=== PATIENT | male | born 1970 | race Caucasian/White ===

== ENCOUNTER 2021-03-27 08:43 | Outpatient (CLI) | payer BC, SELFPAY ==
[2021-03-27 09:03] LABS: Basophils Percent Auto 0.2 % (0.2-1.2); Eosinophils Absolute Auto 0.2 K/mm3 (0-0.3); Eosinophils Percent Auto 3.6 % (0-4.4); Hematocrit 46.5 % (42.0-52.0); Hemoglobin 15.7 g/dL (14.0-18.0); Immature Granulocyte Absolute 0.02 K/mm3 (0.00-0.031); Immature Granulocyte Percent A 0.5 % (0-0.5); Lymphocytes Absolute Auto 1.21 K/mm3 (0.9-3.2); Lymphocytes Percent Auto 27.5 % (18.3-44.2); Mean Corpuscular HGB Conc 33.8 g/dl (32-36); Mean Corpuscular Hemoglobin 29.9 pg (26-34); Mean Corpuscular Volume 88.6 fl (80-100); Mean Platelet Volume 8.8 fl (7.4-10.4); Monocytes Absolute Auto 0.4 K/mm3 (0.1-0.6); Neutrophils Absolute Auto 2.6 K/mm3 (1.3-6.7); Neutrophils Percent Auto 58.2 % (45.5-73.1); Platelet Count Result 247 k/mm3 (150-375); Red Blood Count 5.25 M/mm3 (4.6-6.20); Red Cell Distribution Width 13.2 % (11.5-14.5); White Blood Count 4.4 K/mm3 (4.5-10.0)
[2021-03-27 09:18] LABS: Alanine Aminotransferase 33 U/L (4-50); Albumin Level 4.8 g/dL (3.5-5.1); Alkaline Phosphatase 83 U/L (38-126); Anion Gap 12 mmol/L (8-16); Aspartate Amino Transferase 44 U/L (17-59); Bilirubin,Total 0.9 mg/dL (0.2-1.3); Blood Urea Nitrogen 13 mg/dL (9-20); Calcium 9.4 mg/dL (8.4-10.2); Carbon Dioxide 26 mmol/L (22-30); Chloride 100 mmol/L (98-107); Estimated Glomerular Filt Rate > 60; Glucose 110 mg/dL (65-110); Potassium 3.9 mmol/L (3.4-5.0); Sodium 138 mmol/L (137-145)
[2021-03-27 10:00] LABS: Hemoglobin A1C 5.4 % (<5.7)
[2021-03-27 10:24] LABS: Folic Acid 9.5 ng/mL (2.76->20)
== END 2021-03-27 08:44 | disposition home or self-care (01) ==
PROVIDERS: PCP Family Medicine; Visit Provider Family Medicine
DX: R63.4 Abnormal weight loss (principal); R53.83 Other fatigue; R73.01 Impaired fasting glucose
CPT/HCPCS: 36415; 80053; 82607; 82746; 83036; 84443; 85025

== ENCOUNTER 2021-04-11 14:01 | Outpatient (CLI) | payer BC, SELFPAY ==
--- NOTE | ~2021-04-11 | CT_ITS ---
EXAMINATION: CT brain wo con DATE: 04/11/2021 14:29 INDICATION: Transient cerebral ischemic attack. Slurred speech. Dizziness. TECHNIQUE: Computed tomography (CT) of the head was performed without intravenous contrast. The mA wa s adjusted according to patient size. Iterative reconstruction technique was employed. The dose-lengt h product was 605.33 mGy-cm. COMPARISON: None FINDINGS: There is no intracranial hemorrhage, acute infarction, or abnormal intracranial mass lesion . The ventricles are normal in size. There is mucosal thickening in the paranasal sinuses. The mastoi d air cells are normal. The orbits are normal. IMPRESSION: 1. Normal brain. Reviewed, dictated and finalized at location A. IMPRESSION: 1. Normal brain.
--- NOTE | ~2021-04-11 | US_ITS ---
EXAMINATION: US carotid duplex BI DATE: 04/11/2021 14:44 INDICATION: Transient cerebral ischemic attack TECHNIQUE: Grayscale, color Doppler, and pulsed Doppler images of the cervical carotid arteries were obtained. The degree of vessel stenosis is placed in one of the following categories: normal, <50%, 5 0-69%, >=70% but less than near-occlusion, near-occlusion, or total occlusion. Note that percent sten osis relative to normal distal artery lumen diameter is indirectly measured from velocity measurement s as described by Dong, et al. Radiology 2003; 229:340-346. Notes: Normal: Peak systolic velocity <125 centimeters/sec and no plaque <50%. Peak systolic velocity <125 ( EDV <40; ICA/CCA PSV ratio <2.0; used these factors only a tandem lesions or low cardiac output or co ntralateral disease) 50-69 %: PSV 125-230 (EDV 40-100; ratio 2-4) >= 70% but less than near occlusion: PSV greater than 230 (EDV > 100; ratio> 4.0) Near Occlusion: PSV that is variable; markedly narrowed lumen Occlusion: Absent flow on color/spectral Doppler and no lumen on krause scale. COMPARISON: None. FINDINGS: RIGHT: The right common carotid artery (CCA) peak systolic velocity (PSV) is 97 cm/s. The right internal car otid artery (ICA) PSV is 78 cm/s. The right ICA end-diastolic velocity (EDV) is 39 cm/s. The right IC A/CCA PSV ratio is 0.8. The external carotid artery (ECA) PSV is 95 cm/s. There is antegrade flow in the right vertebral artery. LEFT: The left CCA PSV is 86 cm/s. The left ICA PSV is 69 cm/s. The left ICA EDV is 30 cm/s. The left ICA/C CA PSV ratio is 0.8. The ECA PSV is 92 cm/s. There is antegrade flow in the left vertebral artery. IMPRESSION: 1. Less than 50% stenosis in the right internal carotid artery by sonographic criteria. 2. Less than 50% stenosis in the left internal carotid artery by sonographic criteria. Reviewed, dictated and finalized at location B. IMPRESSION: 1. Less than 50% stenosis in the right internal carotid artery by sonographic c yevgeniy. 2. Less than 50% stenosis in the left internal carotid artery by sonographic cr keith.
== END 2021-04-11 14:02 | disposition home or self-care (01) ==
PROVIDERS: PCP Family Medicine; Visit Provider Family Medicine
DX: G45.9 Transient cerebral ischemic attack, unspecified (principal); I65.23 Occlusion and stenosis of bilateral carotid arteries
CPT/HCPCS: 70450; 93880

== ENCOUNTER 2021-12-28 06:36 | Outpatient (CLI) | payer OTHER, SELFPAY ==
--- NOTE | 2021-12-28 09:42 | WPDNEUROLOGY ---
Neurology EEG Report General Information Date of Study: 12/28/21 TEST eeg DIAGNOSIS Focal seizures CONDITION OF RECORDING awake drowsy and sleep EEG NUMBER [id number] CLINICAL HISTORY patient reports he has had 4 to 5 episodes in the last 10 months of slurred speech lasting for about 10 minutes at 1 time EEG DESCRIPTION basic resting occipital frequency consists of poorly organized low voltage 9 to 11 hertz per 2nd alpha posteriorly admixed with low-voltage 15 to 18 hertz per 2nd beta. Low-voltage beta activity seen diffusely during drowsiness. Bilateral symmetrical sleep activity seen during sleep photic stimulation produced normal drive. Hyperventilation not done. Intermittent EKG artifacts are seen. Non paroxysmal. Nonfocal. Nonlateralizing. IMPRESSION No significant abnormalities noted
== END 2021-12-28 06:37 | disposition home or self-care (01) ==
LOC: ANHNEURO 06:38
PROVIDERS: PCP Family Medicine; Visit Provider Psychiatry & Neurology Neurology
DX: G40.109 Localization-related (focal) (partial) symptomatic epilepsy and epileptic syndromes with simple partial seizures, not intractable, without status epilepticus (principal)
CPT/HCPCS: 95816

== ENCOUNTER 2024-02-27 00:29 | Day surgery (SDC) | payer OTHER, SELFPAY ==
[2024-02-04 11:02] VITALS: BMI 25.1
[2024-02-27 10:12] VITALS: BP 139/97; PULSE 80; RESP 18; TEMP 36.5; O2SAT 97
[2024-02-27] MEDS: LACTATED RINGERS 1,000 ML 150 ML IV CONT (10:16)
--- NOTE | 2024-02-27 10:38 | WPDANESEPPF ---
Anes - Initial Pre Proc Eval Procedure: Operation Date: 02/27/24 11:30 Proposed Procedures p Screening Colonoscopy - Rojelio Tong MD Date/Time: 02/27/24 10:38 Surgeon: Rojelio Tong MD Pre Op Diagnosis: neoplasm screening, screening for malignant neopla Patient Data Age: 53 Gender: M Height: 1.85 m Weight: 79.4 kg Last Vital Signs Temp 97.7 F 02/27/24 10:12 Pulse 80 02/27/24 10:12 Resp 18 02/27/24 10:12 BP 139/97 H 02/27/24 10:12 Pulse Ox 97 02/27/24 10:12 O2 Del Method Room Air 02/27/24 10:12 Allergies Allergy/AdvReac Type Severity Reaction Status Date / Time Sulfa (Sulfonamide Allergy Intermediate Rash Verified 02/27/24 10:10 Antibiotics) sulfamethoxazole Allergy Intermediate Rash Verified 02/27/24 10:10 [From Bactrim] trimethoprim [From Bactrim] Allergy Intermediate Rash Verified 02/27/24 10:10 Home Medications Medication Instructions Recorded Confirmed Type indomethacin 50 mg capsule 50 mg PO TID PRN gout #30 caps 11/12/23 02/27/24 Rx allopurinol 100 mg tablet 100 mg PO DAILY #30 tabs 12/10/23 02/27/24 Rx Patient hx anesthesia problems: none Family hx anesthesia problems: none Results Review: All pre-operative results and documents have been reviewed as part of the pre-operative evaluation. [facility] [place] Past Medical History Medical History (Updated 12/10/23 @ 07:09 by Jose Carlos Arce MD) GERD (gastroesophageal reflux disease) Gout Social History Social History Smokeless tobacco user: chewing tobacco Second hand tobacco smoke exposure: No Smoking end date: 05/23/17 Alcohol intake: current Drinks per week: 5 Substance use: never Substance use type: marijuana Living arrangements: with family Occupation/Education: occupation Gender identity (if verbalized by the patient): Male Sexual Orientation (if Verbalized by the Patient): Straight or Heterosexual Spiritual care concerns: No Anes - Eval Final PreProcedure Day of Procedure 02/27/24 10:38 Patient weight: normal Heart: regular rate and rhythm Lungs: clear to auscultation Airway: Mallampati scale class II Neurological: alert and oriented Last oral intake: >/= 8 hours ASA classification: II Emergent: no Anesthetic plan: proceed Anesthesia type and monitoring: general GIVS and standard monitoring Results Review: All pre-operative results and documents have been reviewed as part of the pre-operative evaluation. Informed Consent: The patient's anesthetic plan and its attendant risks and benefits were discussed with the patient/family/POA. Questions were solicited and answers provided to the satisfaction of the patient/family/POA.
--- NOTE | 2024-02-27 11:49 | PM.HPGS ---
History of Present Illness History of Present Illness Consent: Risks, benefits, and alternatives have been discussed and questions answered. Patient agrees to proceed with procedure. Chief complaint: neoplasm screening, screening for malignant neopla Narrative: Maykel Wall is a 53 year old male here for first screening colonoscopy Review of Systems Review of Systems: All systems reviewed & are unremarkable except as noted in HPI and below PMFSH Past Medical History Medical History (Updated 02/27/24 @ 11:51 by Rojelio Tong MD) Colon cancer screening GERD (gastroesophageal reflux disease) Gout Social History Social History Smokeless tobacco user: chewing tobacco Second hand tobacco smoke exposure: No Smoking end date: 05/23/17 Alcohol intake: current Drinks per week: 5 Substance use: never Substance use type: marijuana Living arrangements: with family Occupation/Education: occupation Gender identity (if verbalized by the patient): Male Sexual Orientation (if Verbalized by the Patient): Straight or Heterosexual Spiritual care concerns: No Meds Home Medications and Allergies Home Medications Medication Instructions Recorded Confirmed Type indomethacin 50 mg capsule 50 mg PO TID PRN gout #30 caps 11/12/23 02/27/24 Rx allopurinol 100 mg tablet 100 mg PO DAILY #30 tabs 12/10/23 02/27/24 Rx Allergies Allergy/AdvReac Type Severity Reaction Status Date / Time Sulfa (Sulfonamide Allergy Intermediate Rash Verified 02/27/24 10:10 Antibiotics) sulfamethoxazole Allergy Intermediate Rash Verified 02/27/24 10:10 [From Bactrim] trimethoprim [From Bactrim] Allergy Intermediate Rash Verified 02/27/24 10:10 Vital Signs Vital Signs - 24 hr 02/27/24 10:12 Temperature 97.7 F Pulse Rate 80 Respiratory Rate 18 Blood Pressure 139/97 H Pulse Oximetry 97 Oxygen Delivery Room Air Exam Const: General: comfortable and no acute distress HENMT: Face/Nose/Sinus: Normal nares present Eyes: General: appearance normal, both eyes and all related structures Neck: Neck: no JVD Resp: Auscultation: clear to auscultation bilaterally Cardio: Rate: regular rate Rhythm: regular rhythm GI: Inspection: non-distended GI Palp: Yes Soft to palpation Skin: General skin exam: normal color Neuro: General: gait normal Speech: normal speech Extrem: General: normal to inspection Psych: Mental Status: mental status grossly normal Assessment and Plan Assessment and plan (1) Colon cancer screening: Code(s): Z12.11 - Encounter for screening for malignant neoplasm of colon Status: Acute Assessment and Plan: colonoscopy
[2024-02-27 12:10] VITALS: BP 118/83; PULSE 75; RESP 23; O2SAT 98
[2024-02-27 12:20] VITALS: BP 118/82; PULSE 66; RESP 13; O2SAT 98
[2024-02-27 12:30] VITALS: BP 123/92; PULSE 72; RESP 23; O2SAT 97
== END 2024-02-27 12:38 | disposition home or self-care (01) ==
PROVIDERS: PCP Family Medicine; Referring Provider Family Medicine; Visit Provider Internal Medicine Gastroenterology
PROC: 0DJD8ZZ Inspection of Lower Intestinal Tract, Via Natural or Artificial Opening Endoscopic (ICD-10-PCS; CPT 45378; principal; 2024-02-27 11:30)
DX: Z12.11 Encounter for screening for malignant neoplasm of colon (principal); K57.30 Diverticulosis of large intestine without perforation or abscess without bleeding; K63.5 Polyp of colon; K64.8 Other hemorrhoids; K21.9 Gastro-esophageal reflux disease without esophagitis; M10.9 Gout, unspecified
CPT/HCPCS: 45385; 88305; J2704; J7120